=== PATIENT | male | born 2000 | race Caucasian/White ===

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

== ENCOUNTER 2018-05-05 22:38 | Emergency (ER) | payer OTHER ==
[2018-05-05] MEDS: LIDOCAINE W/EPINEPHRINE 1% 20ML VIAL SC (23:12)
== END 2018-05-06 00:05 | disposition home or self-care (01) ==
LOC: M ED 05-06 00:05
DX: S01.111A Laceration without foreign body of right eyelid and periocular area, initial encounter (principal); S00.83XA Contusion of other part of head, initial encounter; W22.8XXA Striking against or struck by other objects, initial encounter; Y92.099 Unspecified place in other non-institutional residence as the place of occurrence of the external cause; Y93.9 Activity, unspecified; Y99.9 Unspecified external cause status
CPT/HCPCS: 12011

== ENCOUNTER 2018-05-25 06:30 | Emergency (ER) | payer OTHER ==
[2018-05-25] MEDS: NS 1,000 ML IV (07:45)
[2018-05-25 08:03] LABS: BASO % 0.2 % (0.0-1.0); EOS # 0.1 10^3/uL (0.0-0.50); HEMATOCRIT 42.6 % (42.0-52.0); HEMOGLOBIN 14.6 g/dl (13.5-17.5); IMMATURE GRANULOCYTE % 0.3 % (0-3.0); LYMPH # 1.6 10^3/uL (1.5-6.5); LYMPH % 27.6 % (24.0-44.0); MEAN CORPUSCULAR HEMOGLOBIN 29.9 pg (27.0-33.0); MEAN CORPUSCULAR HGB CONC 34.3 g/dl (32.0-36.5); MEAN CORPUSCULAR VOLUME 87.3 fl (80.0-96.0); MONO # 0.4 10^3/uL (0.0-0.8); MONO % 6.2 % (0.0-5.0); NEUTROPHILS # 3.7 10^3/uL (1.8-7.7); NEUTROPHILS % 64.7 % (36.0-66.0); PLATELET COUNT, AUTOMATED 255 10^3/uL (150-450); RED BLOOD COUNT 4.88 10^6/uL (4.30-6.10); RED CELL DISTRIBUTION WIDTH 12.1 % (11.5-14.5); WHITE BLOOD COUNT 5.8 10^3/uL (4.0-10.0)
[2018-05-25 08:17] LABS: INR 1.01; PROTHROMBIN TIME 13.4 SECONDS (12.1-14.4)
[2018-05-25 08:23] LABS: PARTIAL THROMBOPLASTIN TIME 26.9 SECONDS (25.4-37.6)
[2018-05-25 08:24] LABS: APPEARANCE, URINE CLEAR (CLEAR); BACTERIA, URINE AUTO NEGATIVE (NEGATIVE); BILIRUBIN, URINE AUTO NEGATIVE (NEGATIVE); BLOOD, URINE BLOOD NEGATIVE (NEGATIVE); COLOR, URINE YELLOW (YELLOW); GLUCOSE, URINE (UA) AUTO NEGATIVE (NEGATIVE); KETONE, URINE AUTO NEGATIVE (NEGATIVE); LEUKOCYTE ESTERASE, URINE AUTO NEGATIVE (NEGATIVE); MUCUS, URINE SMALL (NEGATIVE); NITRITE, URINE AUTO NEGATIVE (NEGATIVE); PROTEIN, URINE AUTO NEGATIVE (NEGATIVE); RBC, URINE AUTO 1 /HPF (0-3); SPECIFIC GRAVITY URINE AUTO 1.018 (1.002-1.035); SQUAMOUS EPITHELIAL CELL UR AU 0 /HPF (0-6); UROBILINOGEN, URINE AUTO 0.2 mg/dL (0.0-2.0); WBC, URINE AUTO 2 /HPF (0-3)
[2018-05-25 08:30] LABS: ALBUMIN 3.9 GM/DL (3.2-5.2); ALBUMIN/GLOBULIN RATIO 1.18 (1.00-1.93); ALKALINE PHOSPHATASE 88 U/L (45-117); ALT/SGPT 18 U/L (12-78); ANION GAP 5 MEQ/L (8-16); AST/SGOT 16 U/L (7-37); BILIRUBIN,DIRECT < 0.1 MG/DL (0.0-0.2); BILIRUBIN,TOTAL 0.3 MG/DL (0.2-1.0); BLOOD UREA NITROGEN 17 MG/DL (7-18); CALCIUM LEVEL 8.8 MG/DL (8.5-10.1); CARBON DIOXIDE LEVEL 28 MEQ/L (21-32); CHLORIDE LEVEL 106 MEQ/L (98-107); CREATININE FOR GFR 0.78 MG/DL (0.70-1.30); GLUCOSE, FASTING 98 MG/DL (70-100); POTASSIUM SERUM 3.8 MEQ/L (3.5-5.1); SODIUM LEVEL 139 MEQ/L (136-145); TOTAL PROTEIN 7.2 GM/DL (6.4-8.2)
[2018-05-25] MEDS ORDERED: ISOVUE-370 76% 100ML VIAL (Q9967) As Ordered (09:02)
== END 2018-05-25 10:29 | disposition home or self-care (01) ==
LOC: M ED 06:30
DX: S27.322A Contusion of lung, bilateral, initial encounter (principal); S30.810A Abrasion of lower back and pelvis, initial encounter; V03.10XA Pedestrian on foot injured in collision with car, pick-up truck or van in traffic accident, initial encounter; Y92.410 Unspecified street and highway as the place of occurrence of the external cause; F17.200 Nicotine dependence, unspecified, uncomplicated
CPT/HCPCS: Q9967

== ENCOUNTER 2019-04-24 18:00 | Emergency (ER) | payer OTHER ==
[~2019-04-24] VITALS: Ht 175.3 cm; Wt 68.4 kg
[~2019-04-24 18:00] MED LIST: BACT800T5 PO; CYCL10TA PO; IBUP-1022 PO; MAGICMW MT; NAPR-837 PO; ROBA500T PO
[2019-04-24] MEDS ORDERED: INDO50CA91 PO (18:13)
[2019-04-24] MEDS ORDERED: HYDR-3713 PO (18:13)
[2019-04-24 19:42] VITALS: BP 100/56
== END 2019-04-24 19:43 | disposition home or self-care (01) ==
LOC: M ED 18:00
DX: E86.0 Dehydration (principal); R55 Syncope and collapse

== ENCOUNTER 2019-04-30 22:11 | Emergency (ER) | payer OTHER ==
[~2019-04-30] VITALS: Ht 175.3 cm; Wt 68.2 kg
[2019-04-30 22:11] VITALS: BP 132/71
[~2019-04-30 22:11] MED LIST changes: +HYDR-3713 PO; +INDO50CA91 PO
== END 2019-04-30 22:32 | disposition left against medical advice (07) ==
LOC: M ED 22:11
DX: Z53.21 Procedure and treatment not carried out due to patient leaving prior to being seen by health care provider (principal)

== ENCOUNTER 2019-11-12 22:48 | Emergency (ER) | payer OTHER ==
[~2019-11-12] VITALS: Ht 177.8 cm; Wt 65.7 kg
[~2019-11-12 22:48] MED LIST changes: +CYCL-707 PO; -CYCL10TA PO
[2019-11-12 23:22] LABS: HEMATOCRIT 44.4 % (42.0-52.0); HEMOGLOBIN 15.2 g/dl (13.5-17.5); MEAN CORPUSCULAR HEMOGLOBIN 29.6 pg (27.0-33.0); MEAN CORPUSCULAR HGB CONC 34.2 g/dl (32.0-36.5); MEAN CORPUSCULAR VOLUME 86.4 fl (80.0-96.0); PLATELET COUNT, AUTOMATED 239 10^3/uL (150-450); RED BLOOD COUNT 5.14 10^6/uL (4.30-6.10); WHITE BLOOD COUNT 5.3 10^3/uL (4.0-10.0)
[2019-11-12] MEDS ORDERED: NS 1,000 ML IV ONE (23:30)
[2019-11-13 00:05] LABS: ACETAMINOPHEN LEVEL < 2.0 UG/ML (10.0-30.0); ALBUMIN 4.3 GM/DL (3.2-5.2); ALT/SGPT 16 U/L (12-78); BILIRUBIN,DIRECT 0.2 MG/DL (0.0-0.2); BILIRUBIN,TOTAL 0.6 MG/DL (0.2-1.0); BLOOD UREA NITROGEN 5 MG/DL (7-18); CALCIUM LEVEL 8.6 MG/DL (8.5-10.1); CARBON DIOXIDE LEVEL 28 MEQ/L (21-32); CHLORIDE LEVEL 107 MEQ/L (98-107); CREATININE FOR GFR 0.96 MG/DL (0.70-1.30); ETHYL ALCOHOL (ETHANOL) 0.122 % (0.000-0.010); GLOMERULAR FILTRATION RATE > 60.0 (>60); GLUCOSE, FASTING 81 MG/DL (70-100); POTASSIUM SERUM 3.4 MEQ/L (3.5-5.1); SALICYLATE LEVEL < 1.7 MG/DL (5.0-30.0); SODIUM LEVEL 142 MEQ/L (136-145); THYROID STIMULATING HORMONE 0.951 uIU/ML (0.358-3.740); TOTAL PROTEIN 7.3 GM/DL (6.4-8.2)
[2019-11-13 01:35] VITALS: BP 119/58
--- NOTE | 2019-11-13 07:47 | REP ---
Clinical: Trauma. Technique: Frontal view of the pelvis with neutral and frog lateral views of the left hip. Findings: The pelvis and hips appear intact without obvious acute fracture or dislocation. Specifically, AP and frog lateral views of the left hip demonstrates no definite fracture or dislocation. There are two somewhat irregular curvilinear smooth contoured densities presumed to be within the soft tissues overlying the region of the left femoral neck. Differential diagnosis would include chronic soft tissue calcifications related to prior injury as well as foreign body material and correlation is required. Impression: 1. No evidence for acute fracture dislocation. 2. Two somewhat irregular curvilinear smooth contoured densities presumed to be within the soft tissues overlying the region of the left femoral neck. Electronically Signed by Ismael Turk MD 11/13/2019 07:39 A
--- NOTE | 2019-11-13 07:50 | REP ---
Clinical: Trauma. Technique: Frontal view of the chest with four views of the left hemithorax. Findings: Frontal view of the chest demonstrates no acute cardiopulmonary process. Multiple views of the left hemithorax demonstrates no obvious acute rib fracture or pathology. Impression: Normal left rib series. No evidence for acute rib fracture/injury. Electronically Signed by Ismael Turk MD 11/13/2019 07:42 A
--- NOTE | 2019-11-15 07:09 | ECGEPIP ---
[facility] - ED Test Date: 2019-11-12 Pat Name: NKECHI VIERA Department: Room: - Gender: Male Tv Production Assistant: [facility] : 2000 Requested By: FRANDY PARK Order Number: [id number] Reading MD: Nilsa Cortes Measurements Intervals [place] Rate: 95 P: 77 NM: 161 QRS: 73 QRSD: 118 T: 65 QT: 334 QTc: 420 Interpretive Statements SINUS RHYTHM POSSIBLE RIGHT VENTRICULAR CONDUCTION DELAY Electronically Signed on 11-15-2019 7:08:54 EDT by Nilsa Cortes
== END 2019-11-13 01:36 | disposition home or self-care (01) ==
LOC: M ED 22:48
DX: F10.229 Alcohol dependence with intoxication, unspecified (principal); S20.212A Contusion of left front wall of thorax, initial encounter; S50.811A Abrasion of right forearm, initial encounter; W22.8XXA Striking against or struck by other objects, initial encounter; Y92.89 Other specified places as the place of occurrence of the external cause; F17.210 Nicotine dependence, cigarettes, uncomplicated
CPT/HCPCS: 71101; 73502; 80048; 80076; 84443; 85027; 93005; 96360; 99284; G0480

== ENCOUNTER 2020-01-21 18:20 | Emergency (ER) | payer OTHER ==
[2020-01-21] MEDS ORDERED: ACETAMINOPHEN TAB 650MG DOSE (2X325MG) ONE (18:42)
[2020-01-21] MEDS ORDERED: CEPHALEXIN 500 MG CAP ONE (18:42)
== END 2020-01-21 19:23 | disposition home or self-care (01) ==
LOC: M ED 18:20
DX: L73.9 Follicular disorder, unspecified (principal); R51 Headache

== ENCOUNTER 2020-02-07 00:36 | Emergency (ER) | payer OTHER ==
[2020-02-08] MEDS ORDERED: LIDOCAINE 2% MDV 20ML VIAL As Ordered ONE (01:31)
== END 2020-02-07 02:50 | disposition home or self-care (01) ==
LOC: M ED 00:36
DX: S61.012A Laceration without foreign body of left thumb without damage to nail, initial encounter (principal); S60.511A Abrasion of right hand, initial encounter; S60.512A Abrasion of left hand, initial encounter; W25.XXXA Contact with sharp glass, initial encounter; Y92.019 Unspecified place in single-family (private) house as the place of occurrence of the external cause; J45.909 Unspecified asthma, uncomplicated; F17.290 Nicotine dependence, other tobacco product, uncomplicated; Z79.51 Long term (current) use of inhaled steroids